=== PATIENT | female | born 1960 | race Caucasian/White ===

== ENCOUNTER → 2021-01-23 11:00 | Outpatient (CLI) | payer BC, SELFPAY ==
--- NOTE | ~2021-01-23 | DEXA_ITS ---
Bone Density Report Name: FRANCES PALOMARES Age: 60 Sex: Female Ethnicity: White Date of : 1960 Indication: postmenopausal; screening for osteoporosis; parental hip fracture; hysterectomy; Referring Provider: UNKNOWN, UNKNOWN Study: Bone densitometry was performed. Exam Date: January 23, 2021 Accession number: [id number] Bone Density: Region BMD T-score Z-score Classification AP Spine (L1-L4) 0.923 -1.1 0.3 Osteopenia Femoral Neck (Left) 0.747 -0.9 0.3 Normal Total Hip (Left) 0.882 -0.5 0.4 Normal Femoral Neck (Right) 0.754 -0.9 0.4 Normal Total Hip (Right) 0.899 -0.3 0.6 Normal Total Hip Mean 0.891 -0.4 0.5 Normal World Health Organization criteria for BMD impression classify patients as: Normal (T-score at or above -1.0), Osteopenia (T-score between -1.0 and -2.5), or Osteoporosis (T-score at or below -2.5). 10-year Fracture Risk(1): Major Osteoporotic Fracture 13% Hip Fracture 0.6% Reported Risk Factors: [place] (), Neck BMD=0.754, BMI=26.8, parental fracture, smoking (1) FRAX(R) Version 3.08. Fracture probability calculated for an untreated patient. Fracture probability may be lower if the patient has received treatment. Clinical Information Provided by Patient: Parent has had a hip fracture Smokes Has used the following medications: Vitamin D Has the following medical conditions: Hysterectomy Patient maximum height was 65 Menopause Age: 30 No regular weight bearing exercise Drinks caffeinated beverages Onset of menses at age 15 Number of children 0 Impression: The patient has low bone mass, based on the Total Spine T-score. The patient has an estimated ten-year risk of hip fracture of 0.6% and an estimated ten-year risk of major fracture of 13%, based on the WHO FRAX algorithm. The patient has risk factors, including: parental hip fracture, smoking. Discussion: BONE DENSITY IS LOW AT ONE OR MORE SKELETAL SITES. This patient's lowest T-score is low at one or more skeletal sites. It meets the World Health Organization's (WHO) criteria for ?low bone mass? (T-score between -1.0 and -2.5). The patient's 10-year risk of fracture as calculated by FRAX is less than the threshold where pharmacological therapy is recommended by the National Osteoporosis Foundation (NOF). However, all treatment decisions require clinical judgment and consideration of individual patient factors, including patient preferences, comorbidities, previous drug use, risk factors not captured in the FRAX model (e.g., frailty, falls, vitamin D deficiency, increased bone turnover, interval significant decline in bone density) and possible under or overestimation of fracture risk by FRAX. The patient should follow a healthful lifestyle (good nutrition with adequate calcium and vitamin D, and appropriate nikko
== END ==
DX: Z78.0 Asymptomatic menopausal state (principal)
CPT/HCPCS: 77080

== ENCOUNTER → 2021-03-06 06:52 | Outpatient (CLI) | payer BC, SELFPAY ==
--- NOTE | ~2021-03-06 | MM_ITS ---
EXAMINATION: MM screening [facility] BI w miguel HISTORY: Screening TECHNIQUE: Craniocaudal and mediolateral oblique 3-D tomosynthesis images were obtained and synthetic 2-D images were generated. CAD analysis was submitted and interpreted. COMPARISON: Comparison to multiple prior studies sequentially, with oldest reviewed study dated 02/2011. BREAST PARENCHYMAL COMPOSITION: There are scattered areas of fibroglandular density. FINDINGS: There is no evidence of suspicious mass, calcification, or architectural distortion to sugg est malignancy in either breast. There has been no suspicious interval change. IMPRESSION: 1. No mammographic evidence of malignancy. 2. Recommend routine screening mammography in one year. BI-RADS Category 1: Negative Reviewed, dictated and finalized at location A. ENT SERVICES CLERK
== END ==
DX: Z12.31 Encounter for screening mammogram for malignant neoplasm of breast (principal)
CPT/HCPCS: 77063; 77067

== ENCOUNTER 2021-06-09 00:24 | Day surgery (SDC) | payer BC, SELFPAY ==
[2021-05-25 09:42] VITALS: BMI 27.1
[2021-06-09 07:14] VITALS: BP 124/74; PULSE 105; RESP 18; TEMP 37.1; O2SAT 98
[2021-06-09] MEDS: LACTATED RINGERS 1,000 ML 150 ML IV CONT (07:22)
--- NOTE | 2021-06-09 07:59 | WPDGICN ---
Assessment and Plan Assessment and plan (1) Family history of colonic polyps: Code(s): Z83.71 - Family history of colonic polyps Status: Acute Assessment and Plan: Patient gives a strong family history of colon polyps. She states some of these may have been pre malignant or even malignant. She is uncertain on the specifics. Plan is for surveillance colonoscopy now and consider this a 5 year intervals in the future. GI Consult Note Consult date/time: 06/09/21 07:59 HPI: Maribeth Rodriguez is a 61 year old female Presents for screening colonoscopy. Patient reports that her current weight appetite and bowel movements are normal. She denies abdominal pain. She has had no bleeding. She reports that her family history is significant for colon polyps in many family members including parents and siblings. Patient presents today for neoplasia screening. Review of Systems Review of Systems: All systems reviewed & are unremarkable except as noted in HPI and below PMFSH Past Medical History Medical History (Updated 06/09/21 @ 08:00 by Eris Treviño MD) COPD (chronic obstructive pulmonary disease) Hypertension Hypothyroidism Surgical History Surgical History (Updated 06/08/21 @ 13:59 by Mateus Jones DO) History of cholecystectomy History of hysterectomy Social History Social History Years smoked: 40 Smoking status: Current every day smoker Tobacco type: cigarettes Living arrangements: with family Spiritual care concerns: No Meds Home Medications and Allergies Home Medications Medication Instructions Recorded Confirmed Type cholecalciferol (vitamin D3) 25 mcg PO DAILY 05/25/21 05/25/21 History [Vitamin D3] fenofibrate 145 mg PO DAILY 05/25/21 05/25/21 History levothyroxine 175 mcg PO DAILY 05/25/21 05/25/21 History lisinopril-hydrochlorothiazide 1 tablet PO DAILY 05/25/21 05/25/21 History mecobalamin (vitamin B12) 1,000 mcg PO DAILY 05/25/21 05/25/21 History Allergies Allergy/AdvReac Type Severity Reaction Status Date / Time No Known Allergies Allergy Verified 06/09/21 07:13 Vital Signs Vital Signs - 24 hr 06/09/21 07:14 Temperature 98.7 F Pulse Rate 105 H Respiratory Rate 18 Blood Pressure 124/74 Pulse Oximetry 98 Exam Narrative: Physical exam reveals patient to be alert. Vital signs stable. HEENT exam is unremarkable. Patient is anicteric. Lungs are clear to auscultation and percussion. Heart is without murmur or extra sounds. Abdomen bowel sounds are present soft nontender with no organomegaly. Digital external rectal exam is normal.
--- NOTE | 2021-06-09 08:57 | SUR.OPER ---
2 Ascending Polyps Hot Snared, Only [address] Treviño notified by Dixon Howell RN, Arina Ledbetter RN.
[2021-06-09 08:59] VITALS: BP 105/68; PULSE 82; RESP 23; O2SAT 96
[2021-06-09 09:09] VITALS: BP 113/68; PULSE 80; RESP 22; O2SAT 98
[2021-06-09 09:19] VITALS: BP 124/72; PULSE 77; RESP 14; O2SAT 98
== END 2021-06-09 09:24 | disposition home or self-care (01) ==
PROVIDERS: PCP Family Medicine; Visit Provider Internal Medicine Gastroenterology
PROC: 0DJD8ZZ Inspection of Lower Intestinal Tract, Via Natural or Artificial Opening Endoscopic (ICD-10-PCS; CPT 45378; principal; 2021-06-09 08:30)
DX: Z12.11 Encounter for screening for malignant neoplasm of colon (principal); D12.2 Benign neoplasm of ascending colon; K63.5 Polyp of colon; K64.8 Other hemorrhoids; Z83.71 Family history of colonic polyps; I10 Essential (primary) hypertension; J44.9 Chronic obstructive pulmonary disease, unspecified; E03.9 Hypothyroidism, unspecified; F17.210 Nicotine dependence, cigarettes, uncomplicated
CPT/HCPCS: 45385; 88305; J2704; J7120

== ENCOUNTER → 2022-04-20 08:29 | Outpatient (CLI) | payer BC, SELFPAY ==
--- NOTE | ~2022-04-20 | XR_ITS ---
Lumbosacral Spine: AP and lateral views Clinical History: Pain Findings: The normal lordotic curve is maintained. The vertebral bodies and posterior elements are i ntact. The intervertebral disc spaces are preserved. The sacroiliac joints are normally outlined. T here are atherosclerotic calcifications of the aorta. Impression: No significant abnormality. Reviewed, dictated and finalized at location . UTIVE CHAIRMAN Impression: No significant abnormality.
== END ==
PROVIDERS: PCP Internal Medicine; Visit Provider Internal Medicine
DX: M54.42 Lumbago with sciatica, left side (principal); G89.29 Other chronic pain
CPT/HCPCS: 72100

== ENCOUNTER → 2022-06-25 13:08 | Outpatient (CLI) | payer BC, SELFPAY ==
--- NOTE | ~2022-06-25 | MM_ITS ---
EXAMINATION: MM screening [facility] BI w miguel HISTORY: Screening mammogram TECHNIQUE: Craniocaudal and mediolateral oblique 3-D tomosynthesis images were obtained and synthetic 2-D images were generated. CAD analysis was submitted and interpreted. COMPARISON: 03/06/2021, 02/28/2019, 10/30/2015, 10/23/2015 BREAST PARENCHYMAL COMPOSITION: There are scattered areas of fibroglandular density. FINDINGS: No suspicious mass, calcification, or architectural distortion are identified in either charles ast to suggest malignancy. There has been no suspicious interval change. IMPRESSION: 1. No mammographic evidence of malignancy. 2. Recommend routine screening mammography in one year. BI-RADS Category 1: Negative Reviewed, dictated and finalized at location A.
== END ==
PROVIDERS: PCP Internal Medicine; Visit Provider Internal Medicine
DX: Z12.31 Encounter for screening mammogram for malignant neoplasm of breast (principal)
CPT/HCPCS: 77063; 77067

== ENCOUNTER 2023-11-11 14:42 | Outpatient (CLI) | payer BC, SELFPAY ==
--- NOTE | ~2023-11-11 | MM_ITS ---
EXAMINATION: MM screening [facility] BI w miguel HISTORY: Screening TECHNIQUE: Craniocaudal and mediolateral oblique 3-D tomosynthesis images were obtained and synthetic 2-D images were generated. CAD analysis was submitted and interpreted. COMPARISON: Comparison to multiple prior studies sequentially, with oldest reviewed study dated 08/2014. BREAST PARENCHYMAL COMPOSITION: Not dense: There are scattered areas of fibroglandular density. FINDINGS: There is no evidence of suspicious mass, calcification, or architectural distortion to sugg est malignancy in either breast. There has been no suspicious interval change. IMPRESSION: 1. No mammographic evidence of malignancy. 2. Recommend routine screening mammography in one year. BI-RADS Category 1: Negative Reviewed, dictated and finalized at location B.
== END 2023-11-11 14:43 | disposition home or self-care (01) ==
LOC: MICIMG 14:43
DX: Z12.31 Encounter for screening mammogram for malignant neoplasm of breast (principal)
CPT/HCPCS: 77063; 77067

== ENCOUNTER 2024-05-15 10:27 | Outpatient (CLI) | payer BC, SELFPAY ==
--- NOTE | ~2024-05-15 | DEXA_ITS ---
Bone Density Report Name: FRANCES PALOMARES Age: 64 Sex: Female Ethnicity: White Date of : 1960 Indication: postmenopausal; screening for osteoporosis; parental hip fracture; asthma or emphysema; hysterectomy; Referring Provider: UNKNOWN, UNKNOWN Study: Bone densitometry was performed. Exam Date: May 15, 2024 Accession number: [id number] Bone Density: Region BMD T-score Z-score Classification AP Spine(L1, L2, L3) 0.938 -0.7 0.9 Normal Femoral Neck (Left) 0.712 -1.2 0.2 Osteopenia Total Hip (Left) 0.862 -0.7 0.5 Normal Femoral Neck (Right) 0.706 -1.3 0.1 Osteopenia Total Hip (Right) 0.889 -0.4 0.7 Normal Femoral Neck Mean 0.709 -1.3 0.2 Osteopenia Total Hip Mean 0.875 -0.5 0.6 Normal World Health Organization criteria for BMD impression classify patients as: Normal (T-score at or above -1.0), Osteopenia (T-score between -1.0 and -2.5), or Osteoporosis (T-score at or below -2.5). 10-year Fracture Risk(1): Major Osteoporotic Fracture 16% Hip Fracture 1.2% Reported Risk Factors: [place] (), Neck BMD=0.706, BMI=25.5, parental fracture, smoking (1) FRAX(R) Version 3.08. Fracture probability calculated for an untreated patient. Fracture probability may be lower if the patient has received treatment. Clinical Information Provided by Patient: Parent has had a hip fracture Smokes Has used the following medications: Vitamin D Has the following medical conditions: Asthma or Emphysema, Hysterectomy Patient maximum height was 65 Menopause Age: 30 No regular weight bearing exercise Drinks caffeinated beverages Onset of menses at age 15 Number of children 0 Impression: The patient has low bone mass, based on the Right Femoral Neck T-score. The patient has risk factors, including: parental hip fracture, smoking. Discussion: BONE DENSITY IS LOW AT ONE OR MORE SKELETAL SITES. This patient's lowest T-score is low at one or more skeletal sites. It meets the World Health Organization's (WHO) criteria for ?low bone mass? (T-score between -1.0 and -2.5). The patient's 10-year risk of fracture as calculated by FRAX is less than the threshold where pharmacological therapy is recommended by the National Osteoporosis Foundation (NOF). However, all treatment decisions require clinical judgment and consideration of individual patient factors, including patient preferences, comorbidities, previous drug use, risk factors not captured in the FRAX model (e.g., frailty, falls, vitamin D deficiency, increased bone turnover, interval significant decline in bone density) and possible under or overestimation of fracture risk by FRAX. The patient should follow a healthful lifestyle (good nutrition with adequate calcium and vitamin D, and appropriate weight-bearing exercise). Follow-Up: Consider repeating this study in 2 to 3 years to reassess this patient's status, or sooner if there is some new clinical indication. Reported by: PHILIP on 05/15/2024 10:52:00 AM. Reviewed, dictated and finalized at location A.
--- OUTSIDE RECORDS SUMMARY | 2024-05-15 12:24 | XMS_ITS | Clinical Summary ---
Author Organization [facility] Address [address] [place] [address] Care Team Providers Care Gang Plank Workman Name Role Phone Bindu Avery DO Primary Care Prov ider Allergies No known active allergies Social History Tobacco Use Types Packs/Day Years Used Date Smoking Tobacco: Never Assessed Comments Unknown Sex and Gender Information Value Date Recorded Sex Assigned at Not on file Legal Sex Female 4:06 PM CDT Gender Identity Not on file Sexual Orientation Not on file Obstetrics History Last Filed Vital Signs Vital Sign Reading Time Taken Comments Blood Pressure - - Pulse - - Temperature - - Respiratory Rate - - Oxygen Saturation - - Inhaled Oxygen Concentration - - Weight 72.6 kg (160 lb) 02/04/2023 3:03 PM ANALOG IC DESIGN ENGINEER Height 165.1 cm (5' 5 ) 02/04/2023 3:03 PM ANALOG IC DESIGN ENGINEER Body Mass Index 26.63 02/04/2023 3:03 PM ANALOG IC DESIGN ENGINEER Plan of Treatment Health Maintenance Due Date Last Done Comments Cervical Cancer Screening 1960 Colon Cancer Screening-Colonoscopy 1960 Depression Screening 1960 Hepatitis C Screening 1960 Hepatitis B Screening 1979 Regular Well Visit/Exam 18-64 1979 Breast Cancer Screening-Mammogram 02/29/2020 02/28/2019, 06/27/2014, 12/29/2012, Additional history exists Pneumococcal vaccine <65 (2 of 2 - PCV) 10/18/2020 10/19/2019 Covid-19 Vaccine (2023-2 5 season) 2023 01/21/2021, 05/15/2020, 04/24/2020 Influenza Vaccine (#1) 2023 2, 12/18/2020, 12/04/2019 Zoster Vaccine (2 of 2) 12/07/2023 10/12/2023 Lung Cancer Screening 02/06/2025 02/06/2024 , 02/04/2023, 02/04/2023, Additional history exists DTaP/Tdap/Td Vaccine (2 - Td or Tdap) 10/18/2029 10/19/2019 Procedures Procedure Name Priority Date/Time Associated Diagnosis Comments CT LUNG CANCER SCREENING Schedule Routine, Read Routine (OP Routine) 02/06/2024 12:29 PM ANALOG IC DESIGN ENGINEER Personal history of nicotine dependence from Last 3 Months or Most Recently Relevant to Health Maintenance Results * CT Lung Cancer Screening (02/06/2024 12:29 PM ANALOG IC DESIGN ENGINEER) Anatomical Region Laterality Modality Chest N/A Computed Tomogra phy 02/13/2024 5:13 PM ANALOG IC DESIGN ENGINEER Narrative 02/13/2024 8:55 PM ANALOG IC DESIGN ENGINEER EXAM DESCRIPTION: CT LUNG CANCER SCREENING REASON FOR STUDY: Screening CT of the chest in a current smoker with a 47 pack year smoking history. Additional history: None. TECHNIQUE: Low dose CT scan of the chest was performed without intravenous contrast using helical scanning technique. The exam extends from the lung apices through the lung bases. Automatic exposure control was used as a dose optimization technique. NOTE: This study was performed for the specific purposes of lung cancer screening and is not an alternative to diagnostic chest CT. The sensitivity for detection of solid visceral lesions is diminished without the use of intravenous contrast. RADIATION DOSE: CT dose index volume (CTDIvol) = 1.72 mGy COMPARISON: CT chest 02/04/2023 FINDINGS: SMOKING RELATED LUNG DISEASE: Mild pulmonary emphysema. LUNG NODULES: Noncalcified 3 mm nodule in the right lower lobe (image 180) is unchanged. No new nodule. PLEURAE: No pneumothorax or pleural effusion. MEDIASTINUM/JUSTINA: No mediastinal or hilar lymphadenopathy within the limitations of a noncontrast exam. HEART: Heart size is normal with no pericardial effusion. CORONARY ARTERY CALCIFICATION: Absent VASCULATURE: No thoracic aortic aneurysm. AXILLAE: No lymphadenopathy. CHEST WALL: No masses. No subcutaneous air. HARDWARE/LINES/TUBES: None. UPPER ABDOMEN: Hepatic steatosis. MUSCULOSKELETAL: Mild thoracic spondylosis. IMPRESSION: Noncalcified 3 mm nodule in the right lower lobe is unchanged. No new nodule. Mild pulmonary emphysema. Hepatic steatosis. Lung-RADS category 2: Benign appearance or behavior. Recommendation: Low dose Screening CT of chest in 12 months. THIS IS AN ELECTRONICALLY VERIFIED FINAL REPORT 02/13/2024 8:55 PM - Electronically signed by Franky SHANNON T: Report ID: [id number] Reading Location: [place] [id number] Procedure Note Franky Schrader MD - 02/13/2024 EXAM DESCRIPTION: CT LUNG CANCER SCREENING REASON FOR STUDY: Screening CT of the chest in a current smoker with a47 pack year smoking history. Additional history: None. TECHNIQUE: Low dose CT scan of the chest was performed without intravenous contrast using helical scanning technique. The exam extends from the lung apices through the lung bases. Automatic exposure control was used as adose optimization technique. NOTE: This study was performed for the specific purposes of lung cancer screening and is not an alternative to diagnostic chest CT. Thesensitivity for detection of solid visceral lesions is diminished without the use of intravenous contrast. RADIATION DOSE: CT dose index volume (CTDIvol) = 1.72 mGy COMPARISON: CT chest 02/04/2023 FINDINGS: SMOKING RELATED LUNG DISEASE: Mild pulmonary emphysema. LUNG NODULES: Noncalcified 3 mm nodule in the right lower lobe ([id number]) is unchanged. No new nodule. PLEURAE: No pneumothorax or pleural effusion. MEDIASTINUM/JUSTINA: No mediastinal or hilar lymphadenopathy within the limitations of a noncontrast exam. HEART: Heart size is normal with no pericardial effusion. CORONARY ARTERY CALCIFICATION: Absent VASCULATURE: No thoracic aortic aneurysm. AXILLAE: No lymphadenopathy. CHEST WALL: No masses. No subcutaneous air. HARDWARE/LINES/TUBES: None. UPPER ABDOMEN: Hepatic steatosis. MUSCULOSKELETAL: Mild thoracic spondylosis. IMPRESSION: Noncalcified 3 mm nodule in the right lower lobe is unchanged. No newnodule. Mild pulmonary emphysema. Hepatic steatosis. Lung-RADS category 2: Benign appearance or behavior. Recommendation: Low dose Screening CT of chest in 12 months. THIS IS AN ELECTRONICALLY VERIFIED FINAL REPORT 02/13/2024 8:55 PM - Electronically signed by Frnaky Schrader M.D. T: Report ID: [id number] Reading Location: [id number] Bindu Avery DO IMG CT PROCEDURES Final Result from Last 3 Months or Most Recently Relevant to Health Maintenance Insurance Care Teams Gang Plank Workman Relationship Specialty Start Date End Date Bindu Avery DO [address] [place] [address] PCP - General Internal Medicine 01/07/22
--- OUTSIDE RECORDS SUMMARY | 2024-05-15 12:24 | XMS_ITS | Referral Summary ---
Author Organization [facility] Address [address] [place] [address] Care Team Providers Care Cylinder Grinder Name Role Phone Bindu Avery DO Primary Care Prov ider Allergies No known active allergies Social History Tobacco Use Types Packs/Day Years Used Date Smoking Tobacco: Never Assessed Comments Unknown Sex and Gender Information Value Date Recorded Sex Assigned at Not on file Legal Sex Female 4:06 PM CDT Gender Identity Not on file Sexual Orientation Not on file Last Filed Vital Signs Vital Sign Reading Time Taken Comments Blood Pressure - - Pulse - - Temperature - - Respiratory Rate - - Oxygen Saturation - - Inhaled Oxygen Concentration - - Weight 72.6 kg (160 lb) 02/04/2023 3:03 PM PAPER BAG PRESS OPERATOR Height 165.1 cm (5' 5 ) 02/04/2023 3:03 PM PAPER BAG PRESS OPERATOR Body Mass Index 26.63 02/04/2023 3:03 PM PAPER BAG PRESS OPERATOR Plan of Treatment Not on file Procedures Procedure Name Priority Date/Time Associated Diagnosis Comments CT LUNG CANCER SCREENING Schedule Routine, Read Routine (OP Routine) 02/06/2024 12:29 PM PAPER BAG PRESS OPERATOR Personal history of nicotine dependence from Last 3 Months or Most Recently Relevant to Health Maintenance Results * CT Lung Cancer Screening (02/06/2024 12:29 PM PAPER BAG PRESS OPERATOR) Anatomical Region Laterality Modality Chest N/A Computed Tomogra phy 02/13/2024 5:13 PM PAPER BAG PRESS OPERATOR Narrative 02/13/2024 8:55 PM PAPER BAG PRESS OPERATOR EXAM DESCRIPTION: CT LUNG CANCER SCREENING REASON [...] 8:55 PM - Electronically signed by Franky Schrader M.D. LB T: Report ID: [id number] Reading Location: [id number] Procedure Note Franky Schrader MD - 02/13/2024 [...] mm nodule in the right lower lobe ([id number]) is unchanged. No new nodule. PLEURAE: No [...] 8:55 PM - Electronically signed by Franky Schrader M.D. LB T: Report ID: [id number] Reading Location: [place] [address] Bindu Avery DO IMG CT PROCEDURES Final Result from Last 3 Months or Most Recently Relevant to Health Maintenance Insurance [employer] Care Teams Cylinder Grinder Relationship Specialty Start Date End Date iBndu Avery DO [address] [place] [address] PCP - General Internal Medicine 01/07/22
--- OUTSIDE RECORDS SUMMARY | 2024-05-15 12:24 | XMS_ITS | Clinical Summary ---
Author Organization [facility] [employer] Address [address] [place] [address] Care Team Providers Care Construction Helper Name Role Phone LukeBindu DO Primary Care Provider [phone] Source Comments [facility],non-owned Affiliates and Associated Physician Practices is amultiple site organization consisting of ambulatory clinics and hospital sitesin [place], [place], [place] and [place]. This disclosure is being madepursuant to the Care Everywhere program and may not contain all information available regarding this patient. Last updated 17.[facility] [employer] Allergies Active Allergy Reactions Criticality Noted Date Comments Bupropion 12/08/2015 angry Medications * Be aware that medications may not be up to date on this document. Alwaysverify current medications with the patient. Medication Sig Dispensed Refills Start Date End Date Status vitamin D, cholecalciferol, 2000 UNITS tablet Take 1 Tab by mouth once daily. 0 08/02/2013 Active albuterol HFA (Proventil; Ventolin; Proair) 108 (90 Base) MCG/ACT inhaler Inhale 2 (two) puffs by mouth every 4 hours as needed for Shortness of Breath, Wheezing or Cough 18 g 3 04/01/2022 Active nicotine polacrilex (Nicorette) 2 MG gumIndications:Eddie zenaida Dependence Take 1 (one) Each by mouth as needed for Smoking Cessation White Ice Mint flavor Reasons: Nicotine Addiction 20 Each 1 12/27/2023 Active levothyroxine (Synthroid) 137 MCG tabletIndications:H ypothyroidism in adult Take 1 (one) tablet by mouth once daily 90 tablet 3 02/01/2024 Active lisinopril (Prinivil; Zestril) 5 MG tablet Take 1 (one) tablet by mouth 2 times daily 180 tablet 3 04/09/2024 Active fenofibrate (Tricor) 145 MG tablet Take 1 (one) tablet by mouth once daily 90 tablet 3 04/09/2024 Active Active Problems Problem Noted Date Diagnosed Date Osteopenia 04/05/2023 Healthcare maintenance 04/07/2022 Overview (04/05/2023): -annual preventative visit done: 04/05/23 Pre-diabetes 04/01/2022 First degree AV block 01/22/2021 Overview (01/22/2021): Also note flat T in aVL only and Q in III only Primary hypertension 11/25/2020 Centrilobular emphysema 11/25/2020 Multiple lung nodules on CT- small October,, annual screening 11/25/2020 Low HDL (under 40) 10/19/2019 Low vitamin B12 level 03/08/2017 Overview (03/08/2017): 357 pg 03/07/17 Fatty liver 05/18/2011 Overview (07/15/2014): U/S Family history of ischemic heart disease 012 Vitamin D deficiency 01/02/2009 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 Hypothyroidism in adult 12/15/2007 Hypertriglyceridemia 12/15/2007 Perimenopausal 12/15/2007 Mitral valve disorder 12/15/2007 Overview (11/21/2014): Tobacco abuse 12/15/2007 Hemorrhoids 12/15/2007 Overview (11/21/2014): Resolved Problems Problem Noted Date Diagnosed Date Resolved Date Routine general medical exam ination at a health care facility 10/19/2019 06/20/2018 Peripheral sensory neuropathy 03/07/2017 10/19/2019 IGT (impaired glucose tolerance) 08/03/2013 04/01/2022 Gallstones 05/25/2011 10/19/2019 Screening for condition 01/11/200809/22 Overview (11/21/2014): Adult Abstraction Problem List Screening Pap Smear: Result: 12/30/2006 Mammogram: Result: 11/25/2006 Encounters Date Type Department Care Team Description 04/09/2024 1:40 PM DIRECTOR EDUCATIONAL RADIO Office Visit [facility] Internal Medicine [address] [place] [address] [place] [address] Bindu Avery DO Healthcare maintenance (Primary Dx); Hypothyroidism in adult; Hypertriglyceridemia ; Primary hypertension; Multiple lung nodules on CT- small October,, annual screening; Low vitamin B12 level; Vitamin D deficiency; Osteopenia, unspecified location; Centrilobular emphysema; Elevated ferritin; Diabetes mellitus screening; Pre-diabetes; Osteoporosis screening; Ovarian failure due to menopause; Need for shingles vaccine; Hyperkalemia 03/29/2024 Telephone [facility] Internal Medicine [address] [facility] [place] [address] Bindu Avery DO Results 03/08/2024 9:59 AM DIRECTOR EDUCATIONAL RADIO - 03/08/2024 11:59 PM DIRECTOR EDUCATIONAL RADIO Hospital Encounter [facility] - Ultrasound [address] [place] [address] Marcus Stokes APRN-[facility] Discharge Disposition: Home or Self Care 03/06/2024 10:45 AM DIRECTOR EDUCATIONAL RADIO Office Visit [facility] [address] [place] [address] Bindu Avery DO Larsen, Paul M, MD Syncope, unspecified syncope type (Primary Dx); Lightheadedness from Last 3 Months Immunizations Name Administration Dates Next Due COVID PFIZER BIVALENT 12Y+ 30mcg/0.3ML Covid Pfizer primary monoval ent 12+ yr 0.3mL Purple cap 01/21/2021,05/15/2020,04/24/2020 INFLUENZA VACCINE 12/18/2020,12/04/2019 INFLUENZA VACCINE, CELL CULT URE, QUADR. (FLUCELVAX QUADRIVALENT; 6MO+) (CCIIV4) 12/23/2021 PNEUMOCOCCAL PCV20 CONJ VAC IM 12/23/2021 PNEUMOCOCCAL PPSV23 10/19/2019 TDAP (7yrs+) 10/19/2019 Zoster Hzv Vacc Recombinant Inj Im 04/09/2024, Family History Medical History Relation Name Comments Hypertension Brother CVA Father Cancer - Stomach Maternal Grandmother Cancer - Colon Maternal Uncle 3 uncles al l with colon cancer Diabetes - Type 2 Mother Hypertension Mother Depression Sister 1 Hypertension Sister 1 Depression Sister 2 Hypertension Sister 2 Relation Name Status Comments Brother Alive Father (Age 89) Maternal Grandmother Maternal Uncle Alive Mother Alive Sister 1 Alive Sister 2 Alive Sister 3 Alive Social History Tobacco Use Types Packs/Day Years Used Date Smoking Tobacco: Every Day Cigarettes 0.5 48.2 Started: 02/22/1976 Passive Smoke Exposure: Past Smokeless Tobacco: Never Tobacco Cessation:Ready to Q uit: Not Asked; Counseling Given: Not Answered Comments:04/09/24 - 2 pack/month at the most, still working to quit Passive Exposure Comments:father smoked Alcohol Use Standard Drinks/Week Comments No 0 (1 standard drink = 0.6 oz pur e alcohol) PHQ-2 Answer Date Recorded Patient Health Questionnaire-2 Score 0 04/02/2024 Sex and Gender Information Value Date Recorded Sex Assigned at Female 01/14/2021 9:08 AM DIRECTOR EDUCATIONAL RADIO Gender Identity Female 03/22/2017 8:07 AM DIRECTOR EDUCATIONAL RADIO Sexual Orientation Straight 01/14/2021 9: 08 AM DIRECTOR EDUCATIONAL RADIO Last Filed Vital Signs Vital Sign Reading Time Taken Comments Blood Pressure 122/70 04/09/2024 1:37 PM DIRECTOR EDUCATIONAL RADIO Pulse 73 04/09/2024 1:37 PM DIRECTOR EDUCATIONAL RADIO Temperature 36.4 C (97.5 F) 04/09/2024 1:37 PM DIRECTOR EDUCATIONAL RADIO Respiratory Rate 12 06/20/2018 9:51 AM CDT Oxygen Saturation 98% 04/09/2024 1:37 PM DIRECTOR EDUCATIONAL RADIO Inhaled Oxygen Concentration - - Weight 70.2 kg (154 lb 12.8 oz) 04/09/2024 1:37 PM DIRECTOR EDUCATIONAL RADIO Height 165.1 cm (5' 5 ) 04/09/2024 1:37 PM DIRECTOR EDUCATIONAL RADIO Body Mass Index 25.76 04/09/2024 1:37 PM DIRECTOR EDUCATIONAL RADIO Plan of Treatment Upcoming Encounters Date Type Department Care Team (Late st Contact Info) Description 10/08/2024 1:20 PM CDT Office Visit [facility] - Internal Medicine [address] [place] [address] Mayra Lyn, AUTOMATION CONTROL INTEGRATOR-PAPERHANGER PIPE [address] [place] [address] 04/10/2025 1:20 PM DIRECTOR EDUCATIONAL RADIO Office Visit [facility] - Internal Medicine [address] [place] [address] Bindu Avery DO [address] [place] [address] Health Maintenance Due Date Last Done Comments COLOGUARD (AGES 45-75) - COLON CA SCREENING 1961 CT COLONOGRAPHY - COLON CA SCREENING 1961 FIT - COLON CA SCREENING 1961 FLEX SIG - COLON CA SCREENING 1961 Respiratory Syncytial Virus (RSV) Vaccine Pt: or over 60 yrs (1 - Risk 60-74 years 1-dose series) 2021 BONE DENSITY TESTING 04/01/2023 01/23/2021 COVID-19 VACCINE ( season) 2023 12/23/2021, 01/21/2021, 05/15/2020, Additional history exists INFLUENZA VACCINE (#1) 2023 , 12/18/2020, 12/04/2019 MAMMOGRAM 11/10/2024 11/11/2023, 05/0 06/2022, 03/06/2021, Additional history exists LUNG CANCER SCREENING 02/05/2025 02/06/2024 , 02/04/2023, 02/04/2023, Additional history exists COLON MONITORING 06/09/2026 06/09/2021, , 04/10/2012 Colorectal Cancer Screening 06/09/2026 SCREENING FOR DIABETES 04/09/2027 , 04/09/2024, 03/30/2024, Additional history exists LIPID TESTING 04/09/2029 04/09/2024, 03/24, 04/01/2022, Additional history exists DTAP/TDAP/TD VACCINES (2 - Td or Tdap) 10/18/2029 10/19/2019 COLONOSCOPY - COLON CA SCREENING 06/10/2031 06/09/2021, 05/12/2016, 04/10/2012 HEPATITIS C SCREENING Completed 10/25/2019 PNEUMOCOCCAL VACCINE 50+ Completed 12/23/2021, 09/22 HIV SCREENING Completed 04/01/2022 DEPRESSION SCREENING Completed 04/09/2024, 04/05/2023, 02/25/2022, Additional history exists ZOSTER VACCINE Completed 04/09/2024, 10/12/2023 HEPATITIS B VACCINE Aged Out No longe r eligible based on patient's age to complete this topic HIB VACCINE Aged Out No longer eligi ble based on patient's age to complete this topic HPV VACCINE Aged Out No longer eligi ble based on patient's age to complete this topic MENINGOCOCCAL (Group B) VACCINE SHARED DECISION-MAKING Aged Out No longer eligible based on patient's age to complete this topic MENINGOCOCCAL GROUPS A/C/Y/W VACCINE Aged Out No longer eligible based on patient's age to complete this topic Goals Goal Patient Goal Type Associated Problems Recent Progress Patient-Stated? Author Quit smoking / using tobacco Lifestyle Anjelica Samuel Procedures Procedure Name Priority Date/Time Associated Diagnosis Comments TSH HI LOW REFLEX FREE T4 Routine 04/09/2024 2:53 PM DIRECTOR EDUCATIONAL RADIO Hypothyroidism in adult HEMOGLOBIN A1C Routine 04/09/2024 2:53 PM DIRECTOR EDUCATIONAL RADIO Pre-diabetes VITAMIN D 25-HYDROXY Routine 04/09/2024 2:53 PM DIRECTOR EDUCATIONAL RADIO Vitamin D deficiency VITAMIN B12 Routine 04/09/2024 2:53 PM DIRECTOR EDUCATIONAL RADIO Low vitamin B12 level LIPID PROFILE Routine 04/09/2024 2:53 PM DIRECTOR EDUCATIONAL RADIO Hypertriglyceridemia COMPREHENSIVE METABOLIC PANEL Routine 04/09/2024 2:53 PM DIRECTOR EDUCATIONAL RADIO Primary hypertension Diabetes mellitus screening COMPREHENSIVE METABOLIC PANEL Routine 03/30/2024 1:39 PM DIRECTOR EDUCATIONAL RADIO Hyperkalemia IRON + TIBC + FERRITIN Routine 03/22/2024 10:40 AM DIRECTOR EDUCATIONAL RADIO 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 COMPREHENSIVE METABOLIC PANEL Routine 03/22/2024 10:40 AM DIRECTOR EDUCATIONAL RADIO 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 US ABDOMEN LIMITED Routine 03/08/2024 10 :18 AM DIRECTOR EDUCATIONAL RADIO 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 MAMMOGRAM Routine 11/11/2023 11:[address] LUNG SCREEN LOW DOSE Routine 02/04/2023 Screening for lung cancer Cigarette nicotine dependence without complication HIV-1 HIV-2 ANTIBODY + HIV P24 AG PANEL Routine 04/01/2022 2:20 PM DIRECTOR EDUCATIONAL RADIO Screening for HIV (human immunodeficiency virus) COLONOSCOPY 06/09/2021 DEXA BONE DENSITY 2 SITES 01/23/2021 HEPATITIS C AB W RFLX VERIFICATION Routine 10/25/2019 12:10 PM CDT Need for hepatitis C screening test from Last 3 Months or Most Recently Relevant to Health Maintenance Results * TSH HI LOW REFLEX FREE T4 (04/09/2024 2:53 PM DIRECTOR EDUCATIONAL RADIO) TSH 1.049 0.350 - 4.940 uIU/mL [facility] ACCOUNT BILL Blood BLOOD SPECIMEN / Unknown 04/09/2024 2:53 PM DIRECTOR EDUCATIONAL RADIO 04/09/2024 Narrative [facility] ACCOUNT BILL - 04/09/2024 9:07 PM DIRECTOR EDUCATIONAL RADIO Performed at: [address] [place] [id number] Business Systems Architect: Santy Perez Dr, Phone: [phone] Bindu Avery DO LAB - CHEMISTRY OR DERABLES [facility] ACCOUNT BILL [address] [place] [address] * (ABNORMAL) HEMOGLOBIN A1C (HgbA1C) (04/09/2024 2:53 PM DIRECTOR EDUCATIONAL RADIO) Hemoglobin A1c 5.7(H) <5.7 % [facility] ACCOUNT CELINE Comment: AVERAGE GLUCOSE MG/DL BLOOD 117 mg/dL HbA1c Interpretation: Normal: < 5.7% Pre-diabetes: 5.7-6.4% Diabetes: Equal to or greater than 6.5% Test results diagnostic of diabetes should be repeated for c onfirmation. Treatment target values recommended by ADA and other clinica l organizations should be used to evaluate metabolic control in patients. This test should not replace glucose testing for patients wi th Type 1 diabetes, pediatric patients, or women. Falsely low HbA1c results may be observed in patients with c linical conditions that shorten erythrocyte life span or dec rease mean erythrocyte age such as the presence of unstable hemoglobin variants, elevated hemoglobin F level or other ca uses of hemolytic anemia. HbA1c may not accurately reflect glycemic control when clinical conditions that affect erythr ocyte survival are present. Severe Iron deficiency anemia m ay yield falsely high results. Hemoglobin A1c assay should not be used to diagnose or monitor diabetes in patients with malignancy, recent blood transfusion, chronic kidney or evgeny er disease. This method may yield falsely low results when hemoglobin (HbF) exceeds 5% in the specimen. The Ellis Alinity assay for the measurement of HbA1c is a [facility] Glycohemoglobin Standardization Program (NGSP) certi fied method. Blood BLOOD SPECIMEN / Unknown 04/09/2024 2:53 PM DIRECTOR EDUCATIONAL RADIO 04/09/2024 Narrative [facility] ACCOUNT BILL - 04/09/2024 9:07 PM DIRECTOR EDUCATIONAL RADIO Performed at: [address] [place] [address] [id number] Business Systems Architect: Santy Perez Dr, Phone: [phone] Bindu Avery DO LAB - CHEMISTRY OR DERABLES [facility] ACCOUNT BILL [address] [place] [address] * VITAMIN D 25-HYDROXY (04/09/2024 2:53 PM DIRECTOR EDUCATIONAL RADIO) Vitamin D, 25 Hydroxy 31.8 30 - 80 ng/mL [facility] ACCOUNT BILL Comment: Vitamin D Status: Deficiency <20 ng/mL Insufficiency 20-30 ng/mL Sufficiency 30-100 ng/mL Toxicity >100 ng/mL Blood BLOOD SPECIMEN / Unknown 04/09/2024 2:53 PM DIRECTOR EDUCATIONAL RADIO 04/09/2024 Narrative [facility] ACCOUNT BILL - 04/09/2024 9:07 PM DIRECTOR EDUCATIONAL RADIO Performed at: [address] [place] [id number] Business Systems Architect: Santy Perez Dr, Phone: [phone] Bindu Avery DO LAB - CHEMISTRY OR DERABLES [facility] ACCOUNT BILL [address] [place] [address] * (ABNORMAL) COMPREHENSIVE METABOLIC PANEL (04/09/2024 2:53 PM DIRECTOR EDUCATIONAL RADIO) Only the most recent of3 resultswithin the time period is included. Pathologist [facility] Glucose 75 70 - 99 mg/dL [facility] ACCOUNT BILL BUN 22 7 - 26 mg/dL [facility] ACCOUNT BILL Creatinine 0.86 0.57 - 1.11 mg/dL [facility] ACCOUNT BILL eGFR by CKD-EPI 76(L) >=90 mL/min/1.7 3 m2 [facility] ACCOUNT BILL Sodium 143 136 - 145 mmol/L [facility] ACCOUNT BILL Potassium 5.2(H) 3.5 - 5.1 mmol/L [facility] ACCOUNT BILL Chloride 107 98 - 107 mmol/L [facility] ACCOUNT BILL CO2 27 22 - 29 mmol/L [facility] ACCOUNT BILL Calcium 10.7(H) 8.4 - 10.4 mg/dL [facility] ACCOUNT BILL Protein Total 7.8 6.4 - 8.3 gm/dL [facility] ACCOUNT BILL Albumin 4.5 3.4 - 5.0 gm/dL [facility] ACCOUNT BILL Bilirubin Total 0.3 0.2 - 1.2 mg/dL [facility] ACCOUNT BILL Alkaline Phosphatase 41 40 - 150 U/L [facility] ACCOUNT BILL AST 23 5 - 34 U/L [facility] ACCOUNT BILL ALT 24 0 - 55 U/L [facility] ACCOUNT BILL Blood BLOOD SPECIMEN / Unknown 04/09/2024 2:53 PM DIRECTOR EDUCATIONAL RADIO 04/09/2024 Narrative [facility] ACCOUNT BILL - 04/09/2024 9:07 PM DIRECTOR EDUCATIONAL RADIO Performed at: [address] [place] [address] [id number] Business Systems Architect: Santy Perez Dr, Phone: [phone] Bindu Avery DO LAB - CHEMISTRY OR DERABLES Performing Organization Address City/[facility] Co de Phone Number [facility] ACCOUNT BILL [address] [place] [address] * VITAMIN B12 (04/09/2024 2:53 PM DIRECTOR EDUCATIONAL RADIO) Vitamin B12 405 213 - 816 pg/mL [facility] ACCOUNT BILL Blood BLOOD SPECIMEN / Unknown 04/09/2024 2:53 PM DIRECTOR EDUCATIONAL RADIO 04/09/2024 Narrative [facility] ACCOUNT BILL - 04/09/2024 9:07 PM DIRECTOR EDUCATIONAL RADIO Performed at: [address] [place] [address] [id number] Business Systems Architect: Santy Perez Dr, Phone: [phone] Bindu Avery DO LAB - CHEMISTRY OR DERABLES Performing Organization Address City/[facility] Co de Phone Number [facility] ACCOUNT BILL [address] [place] [address] * LIPID PROFILE (LIPID PANEL) (04/09/2024 2:53 PM DIRECTOR EDUCATIONAL RADIO) Cholesterol 152 <200 mg/dL [facility] ACCOUNT BILL Triglycerides 134 <150 mg/dL [facility] ACCOUNT BILL HDL Cholesterol 44 >40 mg/dL [facility] ACCOUNT BILL VLDL Calculated 27 <=30 mg/dL [facility] ACCOUNT BILL LDL Calculated 81 <130 mg/dL [facility] ACCOUNT BILL Blood BLOOD SPECIMEN / Unknown 04/09/2024 2:53 PM DIRECTOR EDUCATIONAL RADIO 04/09/2024 Narrative [facility] ACCOUNT BILL - 04/09/2024 9:07 PM DIRECTOR EDUCATIONAL RADIO Performed at: [address] [place] [address] [place], [place] [id number] Business Systems Architect: Santy Perez Dr, Phone: [phone] Bindu Avery DO LAB - CHEMISTRY OR DERABLES Performing Organization Address City/[facility]/ZIP Co de Phone Number [facility] ACCOUNT BILL [address] [place] [address] * (ABNORMAL) IRON + TIBC + FERRITIN (03/22/2024 10:40 AM DIRECTOR EDUCATIONAL RADIO) TIBC 473(H) 250 - 450 ug/dL [facility] ACCOUNT BILL UIBC 354 118 - 369 ug/dL [facility] ACCOUNT BILL Iron 119 27 - 139 ug/dL [facility] ACCOUNT BILL Iron Saturation 25 15 - 55 % [facility] ACCOUNT BILL Ferritin 307(H) 15 - 150 ng/mL [facility] ACCOUNT BILL Blood BLOOD SPECIMEN / Unknown 03/22/2024 10:40 AM DIRECTOR EDUCATIONAL RADIO 03/22/2024 Narrative [facility] ACCOUNT BILL - 03/24/2024 6:10 AM DIRECTOR EDUCATIONAL RADIO Performed at: 01 - [facility] [address] [place], [place] [id number] Business Systems Architect: Tony Arenas PhD, Phone: [phone] Marcus Stokes AUTOMATION CONTROL INTEGRATOR-PAPERHANGER PIPE LAB - CHEMIS TRY ORDERABLES Performing Organization Address [facility] Co de Phone Number [facility] ACCOUNT BILL [address] [place] [address] * US ABDOMEN LIMITED (03/08/2024 10:18 AM DIRECTOR EDUCATIONAL RADIO) Anatomical Region Laterality Modality Abdomen Ultrasound 03/08/2024 10:3 2 AM DIRECTOR EDUCATIONAL RADIO Narrative 03/08/2024 11:05 AM DIRECTOR EDUCATIONAL RADIO PROCEDURE: US ABDOMEN LIMITED, DATE/TIME OF EXAM: 03/08/2024 10:18 AM, LOCATION [facility] INDICATION: R79.89: Other specified abnormal findings of blood chemistry LIMITED ABDOMINAL ULTRASOUND HISTORY: Genetic hyperferratin level. FINDINGS: The visualized head and body of the pancreas are grossly normal without duct dilatation. The liver is mildly echogenic. No focal hepatic lesion is seen. Hepatopetal flow is present within the portal veins. The gallbladder is absent. The common bile duct measures 0.5 cm. The right kidney is grossly normal in size and echotexture without obstruction DIAGNOSIS: Echogenic liver which could represent changes due to ferritin or fatty infiltration. Otherwise, grossly normal examination as described. Edited by Michelle Pickering on 03/08/2024 10:52 AM > Interpreting Provider: Mauricio Brown MD on 03/08/2024 11:05 AM Procedure Note Mauricio Brown MD - 03/08/2024 PROCEDURE: US ABDOMEN LIMITED, DATE/TIME OF EXAM: 03/08/2024 10:18 AM, LOCATION [facility] INDICATION: R79.89: Other specified abnormal findings of blood chemistry LIMITED ABDOMINAL ULTRASOUND HISTORY: Genetic hyperferratin level. FINDINGS: The visualized head and body of the pancreas are grossly normal without duct dilatation. The liver is mildly echogenic. No focal hepatic lesion is seen.Hepatopetal flow is present within the portal veins. The gallbladder is absent. The common bile duct measures 0.5 cm. The right kidney is grossly normal in size and echotexture without obstruction DIAGNOSIS: Echogenic liver which could represent changes due to ferritin or fatty infiltration. Otherwise, grossly normal examination as described. Edited by Michelle Pickering on 03/08/2024 10:52 AM > Interpreting Provider: Mauricio Brown MD on 03/08/2024 11:05 AM Marcus Stokes AUTOMATION CONTROL INTEGRATOR-PAPERHANGER PIPE US ORDERABLE S * MAMMOGRAM (11/11/2023 11:57 AM CDT) Anatomical Region Laterality Modality Other Historical Provider SCANNING ONLY * CT LUNG SCREEN LOW DOSE (02/04/2023) Anatomical Region Laterality Modality Chest Other 02/04/[address] ORDERABLES * HIV-1 HIV-2 ANTIBODY + HIV P24 AG PANEL (04/01/2022 2:20 PM DIRECTOR EDUCATIONAL RADIO) HIV Screen 4th Generation w Reflex Non Reactive Non Reactive [facility] ACCOUNT BILL Comment: HIV Negative HIV-1/HIV-2 antibodies and HIV-1 p24 antigen were NOT detected. There is no laboratory evidence of HIV infection. Blood BLOOD SPECIMEN / Unknown 04/01/2022 2:20 PM DIRECTOR EDUCATIONAL RADIO 04/01/2022 Narrative Resulting Agency Comment Lab Testing performed at: [facility] [employer] [place] [id number] Bindu Avery DO LAB - CHEMISTRY OR DERABLES Performing Organization Address City/[facility]/ZIP Co de Phone Number [facility] ACCOUNT BILL [address] [place] [address] * COLONOSCOPY (06/09/2021) 06/09/2021 Narrative 06/09/2021 Ordered by an unspecified provider. Scanned Document SCANNING ONLY * DEXA BONE DENSITY 2 SITES (01/23/2021) Anatomical Region Laterality Modality Other 01/23/2021 Narrative 01/23/2021 Ordered by an unspecified provider. Scanned Document DEXA ORDERABLES * HEPATITIS C AB W RFLX VERIFICATION (10/25/2019 12:10 PM CDT) Hepatitis C Antibody <0.1 0.0 - 0.9 s/co ratio [facility] INSURANCE BILL Blood BLOOD SPECIMEN / Unknown 10/25/2019 12:10 PM CDT 10/25/2019 Narrative Resulting Agency Comment [facility] [address] [facility] [id number] Aminah Borden MD LAB - CHEMISTRY GIANCARLO AGEE Performing Organization Address City/[facility]/ZIP Co de Phone Number [facility] INSURANCE BILL [address] [place] [address] from Last 3 Months or Most Recently Relevant to Health Maintenance Care Teams Construction Helper Relationship Specialty Start Date End Date Bindu Avery DO [address] [place] [id number] PCP - General 02/25/22
--- OUTSIDE RECORDS SUMMARY | 2024-05-15 12:24 | XMS_ITS | Clinical Summary ---
Author Organization [facility] Address [address] [place] [id number] Care Team Providers Care Hearing Screener Name Role Phone Enedelialulu Bindu Primary Care Provider [phone] Allergies Active Allergy Reactions Criticality Noted Date Comments Bupropion Other (see comment) 12/08/2015 angry Medications fenofibrate (TRICOR) 145 MG tablet Take 1 tablet (145 mg total) by mouth daily. 06/03/2023 Active levothyroxine (SYNTHROID) 137 MCG tablet Take 1 tablet (137 mcg total) by mouth daily. 11/07/2023 Active lisinopril (PRINIVIL) 10 MG tablet Take 1 tablet (10 mg total) by mouth daily. 10/12/2023 Active Vitamin D3 (VITAMIN D) 50 mcg tablet Take 1 tablet (50 mcg total) by mouth daily. Active Active Problems Problem Noted Date Diagnosed Date Closed nondisplaced fracture of acromial process of left scapula with routine healing 01/25/2024 Family History Medical History Relation Comments Stroke Father Colon Cancer Maternal Uncle Diabetes Mother Heart Disease Mother Hypertension Mother Kidney Disease Mother Relation Status Comments Father Maternal Uncle Mother Social History Tobacco Use Types Packs/Day Years Used Date Smoking Tobacco: Every Day Cigarettes Smokeless Tobacco: Never Tobacco Cessation:Ready to Q uit: Not Asked; Counseling Given: Not Answered Alcohol Use Standard Drinks/Week Comments Not Currently 0 (1 standard drink = 0.6 oz pur e alcohol) Comments No Sex and Gender Information Value Date Recorded Sex Assigned at Not on file Legal Sex Female 6:35 PM CDT Gender Identity Not on file Sexual Orientation Not on file Last Filed Vital Signs Vital Sign Reading Time Taken Comments Blood Pressure - - Pulse - - Temperature - - Respiratory Rate - - Oxygen Saturation - - Inhaled Oxygen Concentration - - Weight 67.1 kg (148 lb) 01/25/2024 11:06 AM [employer] Height 165.1 cm (5' 5 ) 01/25/2024 11:06 AM [employer] Body Mass Index 24.63 01/25/2024 11:06 AM [employer] Plan of Treatment Health Maintenance Due Date Last Done Comments Colorectal Cancer Screening Colonoscopy (10 Years) 1960 Annual Physical 1963 Mammogram Screening 02/28/2021 02/28/2019, 10/30/2015, 06/27/2014, Additional history exists COVID-19 Vaccine ( season) 2023 12/23/2021, 01/21/2021, 05/15/2020, Additional history exists Influenza Adult (#1) 2023 12/23/2021, 12/18/2020, 12/04/2019 Zoster Vaccines (2 of 2) 12/07/2023 10/12/2023 DTaP, Tdap and Td Vaccines (2 - Td or Tdap) 10/18/2029 10/19/2019 RSV Immunization or 60+ Years (1 - 1-dose 75+ series) 2036 Hepatitis C Completed 10/25/2019 Pneumococcal Vaccine: Pediatrics (0 to 5 Years) and At-Risk Patients (6 to 64 Years) Completed 12/23/2021, 10/19/2019 Meningococcal B Vaccine Aged Out No l onger eligible based on patient's age to complete this topic Meningococcal Vaccine Aged Out No girma manasa eligible based on patient's age to complete this topic RSV Immunizations Under 20 Months Aged Out No longer eligible based on patient's age to complete this topic Insurance [facility] Care Teams Hearing Screener Relationship Specialty Start Date End Date Bindu Reddy DO [address] [facility] [address] PCP - General INTERNAL MEDICINE 12/26/23
== END 2024-05-15 10:28 | disposition home or self-care (01) ==
LOC: CHSIMG 10:31
DX: Z78.0 Asymptomatic menopausal state (principal); M85.89 Other specified disorders of bone density and structure, multiple sites
CPT/HCPCS: 77080